=== PATIENT | male | born 1950 ===

== ENCOUNTER 2022-06-07 05:22 | Day surgery (SDC) | payer OTHER ==
[~2022-06-07] VITALS: Ht 172.7 cm; Wt 63.5 kg
[~2022-06-07 05:22] MED LIST: VASOTEC20 MG PO
[2022-06-07] MEDS ORDERED: OXYC1TAB9 PO (08:39)
== END 2022-06-07 12:00 | disposition home or self-care (01) ==
LOC: CIR.AMB 05:22
PROVIDERS: ATTEND Surgery
DX: D37.8 Neoplasm of uncertain behavior of other specified digestive organs (principal); K62.0 Anal polyp; K62.1 Rectal polyp; K62.89 Other specified diseases of anus and rectum; K62.5 Hemorrhage of anus and rectum; K62.7 Radiation proctitis; Z20.822 Contact with and (suspected) exposure to COVID-19